=== PATIENT | female | born 1940 | race Caucasian/White ===

== ENCOUNTER → 2025-04-22 | Outpatient (CLI) | payer OTHER ==
[2025-04-23 14:19] LABS: Stool Occult Bld Immuno 1 Negative (NEGATIVE)
== END ==
LOC: LAB SHORT 16:50 → LAB 16:50 → LAB FUT 04-02 07:35
PROVIDERS: Nurse Practitioner Family
DX: Z12.11 Encounter for screening for malignant neoplasm of colon (principal); R53.82 Chronic fatigue, unspecified
CPT/HCPCS: 82274